=== PATIENT | female | born 1980 | race Caucasian/White ===

== ENCOUNTER 2018-10-23 16:37 | Emergency (ER) | payer OTHER ==
[~2018-10-23] VITALS: Ht 167.6 cm; Wt 127.3 kg
[~2018-10-23 16:37] MED LIST: BACITAB PO; CLEO300C2 PO; EFFE75CA2 PO; FLON0.054; IBUP-1114 PO; IBUP80TA PO; NYST50SS SS; PERCOCET PO
[2018-10-23] MEDS ORDERED: DULO1CAP2 (16:45)
[2018-10-23] MEDS ORDERED: ZYRTTAB8 PO (16:45)
[2018-10-23 17:27] LABS: BASO % 0.4 % (0.0-1.0); EOS # 0.1 10^3/uL (0.0-0.50); EOS % 1.4 % (0.0-3.0); HEMATOCRIT 40.2 % (36.0-47.0); LYMPH # 3.2 10^3/uL (1.5-4.5); LYMPH % 31.2 % (24.0-44.0); MEAN CORPUSCULAR HGB CONC 34.8 g/dl (32.0-36.5); MEAN CORPUSCULAR VOLUME 88.9 fl (80.0-96.0); MONO # 0.7 10^3/uL (0.0-0.8); NEUTROPHILS # 6.1 10^3/uL (1.8-7.7); NEUTROPHILS % 59.6 % (36.0-66.0); PLATELET COUNT, AUTOMATED 303 10^3/uL (150-450); RED BLOOD COUNT 4.52 10^6/uL (4.00-5.40); WHITE BLOOD COUNT 10.2 10^3/uL (4.0-10.0)
[2018-10-23 17:44] LABS: ALBUMIN 3.3 GM/DL (3.2-5.2); ALT/SGPT 31 U/L (12-78); BILIRUBIN,TOTAL 0.1 MG/DL (0.2-1.0); BLOOD UREA NITROGEN 10 MG/DL (7-18); CALCIUM LEVEL 9.2 MG/DL (8.5-10.1); CARBON DIOXIDE LEVEL 27 MEQ/L (21-32); CHLORIDE LEVEL 108 MEQ/L (98-107); CREATININE FOR GFR 0.65 MG/DL (0.55-1.30); GLOMERULAR FILTRATION RATE > 60.0 (>60); GLUCOSE, FASTING 104 MG/DL (70-100); POTASSIUM SERUM 3.9 MEQ/L (3.5-5.1); SODIUM LEVEL 141 MEQ/L (136-145); TOTAL PROTEIN 7.2 GM/DL (6.4-8.2)
[2018-10-23 17:46] LABS: HCG, SERUM QUALITATIVE NEGATIVE (NEGATIVE)
[2018-10-23 17:55] LABS: HIVEXPOSED0 NEGATIVE (NEGATIVE)
[2018-10-23] MEDS ORDERED: EXPOSURE KIT-ADULT 7 DAY SUPPLY PO ONE (18:30)
[2018-10-23] MEDS ORDERED: TRUVTAB PO (18:59)
[2018-10-23] MEDS ORDERED: RALT40TA PO (18:59)
[2018-10-23 19:28] VITALS: BP 141/91
[2018-10-24 10:27] LABS: HEPATITIS B SURFACE ANTIBODY POSITIVE (POSITIVE)
[2018-10-24 10:38] LABS: HEPATITIS B SURFACE ANTIGEN NEGATIVE (NEGATIVE)
== END 2018-10-23 20:24 | disposition home or self-care (01) ==
LOC: M ED 16:37
DX: S61.042A Puncture wound with foreign body of left thumb without damage to nail, initial encounter (principal); Z77.21 Contact with and (suspected) exposure to potentially hazardous body fluids; W46.1XXA Contact with contaminated hypodermic needle, initial encounter; Y92.89 Other specified places as the place of occurrence of the external cause; Y93.F9 Activity, other caregiving; Y99.0 Civilian activity done for income or pay; Z79.899 Other long term (current) drug therapy; Z88.2 Allergy status to sulfonamides; Z88.0 Allergy status to penicillin; Z88.8 Allergy status to other drugs, medicaments and biological substances

== ENCOUNTER → 2018-12-31 | Outpatient (CLI) | payer BC ==
[~2018-12-31] MED LIST changes: +DULO1CAP5; +RALT40TA PO; +TRUVTAB PO; +ZYRTTAB8 PO
--- NOTE | 2019-01-01 01:53 | REP ---
Clinical: Cough with history of pneumonia . Comparison: None . Technique: PA and lateral. Findings: The mediastinum and cardiac silhouette are normal. The lung han are clear and without acute consolidation, effusion, or pneumothorax. The skeletal structures are intact and normal. Impression: 1. No acute cardiopulmonary process. Electronically Signed by Hector Hastings MD 01/01/2019 01:45 A
== END ==
LOC: M LRY 12:25
PROVIDERS: ATTEND Internal Medicine
DX: J18.9 Pneumonia, unspecified organism (principal)

== ENCOUNTER → 2019-11-20 | Outpatient (CLI) | payer BC ==
[2019-11-20 12:52] LABS: BASO % 0.4 % (0.0-1.0); EOS # 0.1 10^3/uL (0.0-0.5); EOS % 2.1 % (0.0-3.0); HEMOGLOBIN 13.9 g/dl (12.0-15.5); LYMPH # 2.2 10^3/uL (1.5-5.0); LYMPH % 32.4 % (24.0-44.0); MEAN CORPUSCULAR HEMOGLOBIN 30.5 pg (27.0-33.0); MEAN CORPUSCULAR HGB CONC 33.9 g/dl (32.0-36.5); MEAN CORPUSCULAR VOLUME 89.9 fl (80.0-96.0); MONO # 0.4 10^3/uL (0.0-0.8); MONO % 5.7 % (0.0-5.0); PLATELET COUNT, AUTOMATED 281 10^3/uL (150-450); RED BLOOD COUNT 4.56 10^6/uL (4.00-5.40); WHITE BLOOD COUNT 6.7 10^3/uL (4.0-10.0)
[2019-11-20 13:12] LABS: ALBUMIN 3.4 GM/DL (3.2-5.2); ALT/SGPT 25 U/L (12-78); BILIRUBIN,TOTAL 0.4 MG/DL (0.2-1.0); BLOOD UREA NITROGEN 10 MG/DL (7-18); CALCIUM LEVEL 8.3 MG/DL (8.5-10.1); CARBON DIOXIDE LEVEL 26 MEQ/L (21-32); CHLORIDE LEVEL 107 MEQ/L (98-107); CHOLESTEROL LEVEL 194 MG/DL (<200); CHOLESTEROL RISK RATIO 4.127 (<5); CREATININE FOR GFR 0.66 MG/DL (0.55-1.30); FOLATE 12.8 NG/ML (>5.4); FREE T3 2.9 PG/ML (2.2-4.0); GLOMERULAR FILTRATION RATE > 60.0 (>58); GLUCOSE, FASTING 111 MG/DL (70-100); HDL CHOLESTEROL 47 MG/DL (>40); IRON (FE) 88 UG/DL (50-170); LDL CHOLESTEROL 126 MG/DL (<100); MAGNESIUM LEVEL 2.2 MG/DL (1.8-2.4); NON-HDL-C 147 MG/DL; PERCENT SATURATION 29.2 % (13.2-45.0); POTASSIUM SERUM 4.1 MEQ/L (3.5-5.1); PTH INTACT 78.7 PG/ML (18.5-88.0); SODIUM LEVEL 139 MEQ/L (136-145); THYROXINE (T4) 5.9 UG/DL (4.5-12.0); TOTAL 25(OH) VITAMIN D 24.8 NG/ML (30.0-100.0); TOTAL IRON BINDING CAPACITY 301 UG/DL (250-450); TOTAL PROTEIN 7.2 GM/DL (6.4-8.2); TRIGLYCERIDES LEVEL 107 MG/DL (<150); VITAMIN B12 LEVEL 395 PG/ML (247-911)
[2019-11-20 15:22] LABS: HEMOGLOBIN A1c 5.6 %
[2019-12-23 14:42] LABS: VITAMIN A, RETINOL LEVEL 37.4 ug/dL (20.1-62.0)
[2019-12-23 14:43] LABS: COPPER PLASMA 111 ug/dL (72-166); URINE COTININE LEVEL <10 ng/mL (.); URINE NICOTINE LEVEL <10 ng/mL (.); VITAMIN B1 LEVEL WHOLE BLOOD 148.4 nmol/L (66.5-200.0); VITAMIN E(GAMMA TOCOPHEROL) 2.7 mg/L (0.5-5.5); VITAMIN K1 <.13 ng/mL (0.13-1.88); ZINC PLASMA 98 ug/dL (56-134)
== END ==
LOC: M LRY 08:58
PROVIDERS: ATTEND Physician Assistant Medical
DX: Z01.818 Encounter for other preprocedural examination (principal)
CPT/HCPCS: 80053; 80061; 80307; 82306; 82525; 82607; 82746; 83036; 83550; 83735; 83970; 84425; 84436; 84443; 84446; 84481; 84590; 84597; 84630; 85025; G0480

== ENCOUNTER → 2020-06-19 | Outpatient (CLI) | payer SELFPAY | LOC: M LABSMTC 12:42 | PROVIDERS: ATTEND Pediatrics | DX: Z20.822 Contact with and (suspected) exposure to COVID-19 (principal) ==

== ENCOUNTER → 2020-06-29 | Outpatient (CLI) | payer SELFPAY | LOC: M LABSMTC 12:10 | PROVIDERS: ATTEND Pediatrics | DX: Z20.822 Contact with and (suspected) exposure to COVID-19 (principal) ==

== ENCOUNTER → 2024-02-21 | Outpatient (CLI) | payer BC ==
[~2024-02-21] MED LIST changes: +EMTR1TAB16 PO; +NYST-38 SS; -NYST50SS SS; -TRUVTAB PO
== END ==
LOC: M RAD 12:28
PROVIDERS: ATTEND Physician Assistant
DX: I83.893 Varicose veins of bilateral lower extremities with other complications (principal)